=== PATIENT | male | born 1945 | race Caucasian/White ===

== ENCOUNTER 2016-04-01 22:37 | Inpatient (IN) | payer MEDICARE ==
[~2016-04-01] VITALS: Ht 177.8 cm; Wt 89.2 kg
[2016-04-01 23:13] LABS: BASO # 0.1 (0.0-0.2); BASO % 0.5 % (0.0-2.0); EOS # 0.2 (0.0-0.7); GRAN # 6.5 (1.4-6.5); GRAN % 65.5 % (42.2-75.2); HEMOGLOBIN 13.4 g/dl (13.5-18.0); LYMPH # 2.4 (1.2-3.4); MEAN CELL VOLUME 95 fl (80.0-100.0); MEAN CORPUSCULAR HEMOGLOBIN 30 pg (27.0-31.0); MEAN CORPUSCULAR HGB CONC 32 g/dl (33.0-37.0); MEAN PLATELET VOLUME 10.3 fl (7.4-10.4); MONO # 0.7 (0.1-0.6); MONO % 6.7 % (1.7-9.3); PLATELET COUNT 185 K/mm3 (130-400); RED BLOOD COUNT 4.42 M/mm3 (4.20-5.60); REDCELL DISTRIBUTION WIDTH-CV 12.6 % (11.5-14.5); WHITE BLOOD COUNT 9.9 K/mm3 (4.8-10.8)
[2016-04-01 23:14] LABS: ARTERIAL BLD GAS O2 SATURATION 99.4 % (92-100); ARTERIAL BLD GAS TCO2 CT 23.5; ARTERIAL BLOOD GAS BASE EXCESS -7.5 (-2-2); ARTERIAL BLOOD GAS HCO3 21.7 meq/L (22-26)
[2016-04-01 23:15] LABS: ALLEN TEST YES; ALLENS TEST RESULT PASS; ARTERIAL BLOOD GAS PHT 7.18 C (7.35-7.45); ARTERIAL BLOOD GAS PO2 338.7 mmHg (80-100); ARTERIAL BLOOD GAS PO2T 338.7 (80-100); ARTERIAL BLOOD GAS pH 7.18 (7.35-7.45); ATS? YES
[2016-04-01 23:18] LABS: INR 1.2 (0.8-3.0); PROTHROMBIN TIME 12.9 SECONDS (9.7-12.8)
[2016-04-01 23:25] LABS: ALBUMIN 3.2 gm/dL (3.5-5.0); BILIRUBIN,TOTAL 0.9 mg/dL (0.0-1.0); CALCIUM 7.4 mg/dL (8.4-10.2); CREATININE, serum 0.95 mg/dL (0.66-1.25); POTASSIUM 3.4 mmol/L (3.4-5.0); TOTAL PROTEIN 5.8 gm/dL (6.4-8.2)
[2016-04-01] MEDS ORDERED: LASIX 20MG TABL20 MG PO (23:29)
[2016-04-01] MEDS ORDERED: SPIRIVA RESPIMAT4 GM IH (23:30)
[2016-04-01] MEDS ORDERED: PULMICORT180 MCG/Ac IH (23:30)
[2016-04-01] MEDS ORDERED: TUDORZA IH (23:30)
[2016-04-01 23:40] LABS: TROPONIN-I 0.047 ng/mL (0.000-0.034)
[2016-04-01 23:57] LABS: ARTERIAL BLD GAS O2 SATURATION 79.8 % (92-100); ARTERIAL BLOOD GAS BASE EXCESS -3.6 (-2-2); ARTERIAL BLOOD GAS HCO3 26.2 meq/L (22-26); ARTERIAL BLOOD GAS PO2 52.6 mmHg (80-100)
[2016-04-01 23:58] LABS: ALLEN TEST YES; ALLENS TEST RESULT PASS; ARTERIAL BLD GAS TCO2 CT 28.3; ATS? YES
[2016-04-02] VITALS (1136 sets, daily range): BP systolic 58–194; BP diastolic 38–98; PULSE 92–115; TEMP 97.1–101.2; O2SAT 87–100
[2016-04-02] MEDS ORDERED: IMODIUM AD1 MG/5 ML PO (03:08)
[2016-04-02] MEDS ORDERED: COREG 3.123.125 MG/T PO (03:09)
[2016-04-02] MEDS ORDERED: ASPIRIN 81M81 MG/TA2 PO (03:10)
[2016-04-02] MEDS ORDERED: TUMS ULTRA1000 MG PO (03:12)
[2016-04-02 05:04] LABS: ARTERIAL BLD GAS O2 SATURATION 95.8 % (92-100); ARTERIAL BLD GAS TCO2 CT 28.9; ARTERIAL BLOOD GAS BASE EXCESS 1.8 (-2-2); ARTERIAL BLOOD GAS HCO3 27.4 meq/L (22-26); ARTERIAL BLOOD GAS PHT 7.39 C (7.35-7.45); ARTERIAL BLOOD GAS PO2 82.5 mmHg (80-100); ARTERIAL BLOOD GAS PO2T 82.5 (80-100); ARTERIAL BLOOD GAS pH 7.39 (7.35-7.45); OXYHEMOGLOBIN 94.4 %
[2016-04-02 05:05] LABS: ALLEN TEST NO; ATS? YES
[2016-04-02 05:06] LABS: ABG VENTILATOR TIDAL VOLUME 500 mL
[2016-04-03] VITALS (1205 sets, daily range): BP systolic 63–122; BP diastolic 41–78; PULSE 82–115; TEMP 97.2–101.4; O2SAT 69–100
[2016-04-03 01:31] LABS: VENOUS BLOOD GAS BE -4.4 (-4-4); VENOUS BLOOD GAS SAO2 73.4 % (60-80)
[2016-04-03 01:33] LABS: VENOUS BLOOD GAS SITE CENTRAL LINE
[2016-04-03 02:10] LABS: HEMATOCRIT 40.9 % (42.0-52.0); HEMOGLOBIN 13.6 g/dl (13.5-18.0); MEAN CORPUSCULAR HEMOGLOBIN 30 pg (27.0-31.0); MEAN CORPUSCULAR HGB CONC 33 g/dl (33.0-37.0); MEAN PLATELET VOLUME 10.3 fl (7.4-10.4); PLATELET COUNT 100 K/mm3 (130-400); RED BLOOD COUNT 4.53 M/mm3 (4.20-5.60); REDCELL DISTRIBUTION WIDTH-CV 13.2 % (11.5-14.5); WHITE BLOOD COUNT 7.7 K/mm3 (4.8-10.8)
[2016-04-03 02:11] LABS: MEAN CELL VOLUME 90 fl (80.0-100.0)
[2016-04-03 02:14] LABS: ADD PATHOLOGY DIFF REVIEW NO
[2016-04-03 02:28] LABS: BAND 19 % (0-10); NEUTROPHILS 72 % (42.0-75.2); TOTAL CELLS COUNTED 100
[2016-04-03 02:29] LABS: MICROCYTOSIS 1+; POLYCHROMASIA 1+
[2016-04-03 02:41] LABS: PH 5 (5-8); SQUAMOUS EPITHELIAL 0-2 /hpf; URINE APPEARANCE Cloudy; URINE BACTERIA Rare /hpf; URINE BILIRUBIN Negative (NEGATIVE); URINE BLOOD 3+ (NEGATIVE); URINE COLOR Amber; URINE GLUCOSE Negative (NEGATIVE); URINE KETONE Negative (NEGATIVE); URINE RBC >50 /hpf; URINE UROBILINOGEN Negative (NEGATIVE)
[2016-04-03 02:45] LABS: ADJUSTED CALCIUM 8.7 mg/dL (8.4-10.2); ALBUMIN 3.5 gm/dL (3.5-5.0); BILIRUBIN,TOTAL 1.2 mg/dL (0.0-1.0); CALCIUM 8.3 mg/dL (8.4-10.2); CREATININE, serum 2.07 mg/dL (0.66-1.25); MAGNESIUM 1.4 mg/dL (1.6-2.3); POTASSIUM 3.8 mmol/L (3.4-5.0); TOTAL PROTEIN 6.5 gm/dL (6.4-8.2)
[2016-04-03 03:02] LABS: TROPONIN-I 0.399 ng/mL (0.000-0.034)
[2016-04-03 05:32] LABS: ARTERIAL BLD GAS O2 SATURATION 94.1 % (92-100); ARTERIAL BLD GAS TCO2 CT 25.6; ARTERIAL BLOOD GAS BASE EXCESS 0.7 (-2-2); ARTERIAL BLOOD GAS HCO3 24.5 meq/L (22-26); ARTERIAL BLOOD GAS PHT 7.44 C (7.35-7.45); ARTERIAL BLOOD GAS PO2 71.1 mmHg (80-100); ARTERIAL BLOOD GAS PO2T 71.1 (80-100); ARTERIAL BLOOD GAS pH 7.44 (7.35-7.45); OXYHEMOGLOBIN 93.1 %
[2016-04-03 05:33] LABS: ALLEN TEST YES; ALLENS TEST RESULT PASS; ATS? YES
[2016-04-03 09:21] LABS: VENOUS BLOOD GAS BE -2.5 (-4-4); VENOUS BLOOD GAS SAO2 66.7 % (60-80)
[2016-04-03 09:22] LABS: VENOUS BLOOD GAS SITE VENIPUNCTURE
[2016-04-03 16:36] LABS: SODIUM,RANDOM URINE < 5 mmol/L
[2016-04-04] VITALS (1424 sets, daily range): BP systolic 91–122; BP diastolic 61–91; PULSE 103–111; TEMP 97–98.9; O2SAT 82–100
[2016-04-04 05:09] LABS: ALLEN TEST NO; ARTERIAL BLD GAS O2 SATURATION 91.6 % (92-100); ARTERIAL BLD GAS TCO2 CT 25.8; ARTERIAL BLOOD GAS BASE EXCESS -3.6 (-2-2); ARTERIAL BLOOD GAS HCO3 24.1 meq/L (22-26); ARTERIAL BLOOD GAS PHT 7.26 C (7.35-7.45); ARTERIAL BLOOD GAS PO2 66.5 mmHg (80-100); ARTERIAL BLOOD GAS PO2T 66.5 (80-100); ARTERIAL BLOOD GAS pH 7.26 (7.35-7.45); ATS? YES; OXYHEMOGLOBIN 90.4 %
[2016-04-04 06:03] LABS: CALCIUM 7.7 mg/dL (8.4-10.2); CREATININE, serum 1.67 mg/dL (0.66-1.25); MAGNESIUM 1.4 mg/dL (1.6-2.3); POTASSIUM 4.6 mmol/L (3.4-5.0)
[2016-04-04 10:49] LABS: pH GASTRIC CONTENTS 4
[2016-04-04 11:02] LABS: HEMATOCRIT 41.1 % (42.0-52.0); HEMOGLOBIN 13.3 g/dl (13.5-18.0); MEAN CELL VOLUME 94 fl (80.0-100.0); MEAN CORPUSCULAR HEMOGLOBIN 30 pg (27.0-31.0); MEAN CORPUSCULAR HGB CONC 32 g/dl (33.0-37.0); MEAN PLATELET VOLUME 11.6 fl (7.4-10.4); PLATELET COUNT 79 K/mm3 (130-400); RED BLOOD COUNT 4.38 M/mm3 (4.20-5.60); REDCELL DISTRIBUTION WIDTH-CV 13.2 % (11.5-14.5); WHITE BLOOD COUNT 5.5 K/mm3 (4.8-10.8)
[2016-04-04 11:37] LABS: ADD PATHOLOGY DIFF REVIEW NO
[2016-04-04 11:49] LABS: BAND 65 % (0-10); METAMYELOCYTE 16 % (0-0); NEUTROPHILS 3 % (42.0-75.2); TOTAL CELLS COUNTED 100
[2016-04-04 11:50] LABS: PLATELET ESTIMATE DECREASED (NORMAL)
[2016-04-05] VITALS (1078 sets, daily range): BP systolic 106–130; BP diastolic 51–81; PULSE 80–110; TEMP 97.7–98.7; O2SAT 86–99
[2016-04-05 04:50] LABS: ARTERIAL BLD GAS O2 SATURATION 88.3 % (92-100); ARTERIAL BLOOD GAS BASE EXCESS -7.4 (-2-2); ARTERIAL BLOOD GAS HCO3 21.3 meq/L (22-26); ARTERIAL BLOOD GAS PO2 60.9 mmHg (80-100); ARTERIAL BLOOD GAS PO2T 60.9 (80-100); OXYHEMOGLOBIN 87.2 %
[2016-04-05 04:51] LABS: ARTERIAL BLD GAS O2 SATURATION 88.3 % (92-100); ARTERIAL BLOOD GAS BASE EXCESS -7.4 (-2-2); ARTERIAL BLOOD GAS HCO3 21.3 meq/L (22-26); ARTERIAL BLOOD GAS PO2 60.9 mmHg (80-100)
[2016-04-05 04:52] LABS: ALLEN TEST YES; ALLENS TEST RESULT PASS; ATS? YES
[2016-04-05 05:31] LABS: HEMATOCRIT 38.6 % (42.0-52.0); HEMOGLOBIN 12.3 g/dl (13.5-18.0); MEAN CELL VOLUME 94 fl (80.0-100.0); MEAN CORPUSCULAR HEMOGLOBIN 30 pg (27.0-31.0); MEAN CORPUSCULAR HGB CONC 32 g/dl (33.0-37.0); MEAN PLATELET VOLUME 11.5 fl (7.4-10.4); PLATELET COUNT 79 K/mm3 (130-400); RED BLOOD COUNT 4.11 M/mm3 (4.20-5.60); REDCELL DISTRIBUTION WIDTH-CV 13.2 % (11.5-14.5); WHITE BLOOD COUNT 6.2 K/mm3 (4.8-10.8)
[2016-04-05 05:40] LABS: ADD PATHOLOGY DIFF REVIEW NO
[2016-04-05 05:51] LABS: ALBUMIN 2.8 gm/dL (3.5-5.0); BILIRUBIN,TOTAL 1.2 mg/dL (0.0-1.0); CREATININE, serum 2.27 mg/dL (0.66-1.25); MAGNESIUM 1.7 mg/dL (1.6-2.3); POTASSIUM 4.3 mmol/L (3.4-5.0); TOTAL PROTEIN 5.8 gm/dL (6.4-8.2)
[2016-04-05 06:01] LABS: BAND 53 % (0-10); NEUTROPHILS 36 % (42.0-75.2); TARGET CELLS 1+; TOTAL CELLS COUNTED 100
[2016-04-05 06:07] LABS: TROPONIN-I 0.149 ng/mL (0.000-0.034)
[2016-04-05 12:25] LABS: ARTERIAL BLD GAS O2 SATURATION 93.8 % (92-100); ARTERIAL BLD GAS TCO2 CT 23.4; ARTERIAL BLOOD GAS BASE EXCESS -6.3 (-2-2); ARTERIAL BLOOD GAS HCO3 21.7 meq/L (22-26); ARTERIAL BLOOD GAS PHT 7.21 C (7.35-7.45); ARTERIAL BLOOD GAS pH 7.21 (7.35-7.45)
[2016-04-05 12:26] LABS: ABG VENTILATOR TIDAL VOLUME 500 mL; ATS? NO
[2016-04-05 12:29] LABS: VENOUS BLOOD GAS BE -6.9 (-4-4); VENOUS BLOOD GAS SAO2 71.3 % (60-80)
[2016-04-05 12:31] LABS: VENOUS BLOOD GAS SITE CENTRAL LINE
[2016-04-05 14:13] LABS: INR 1.1 (0.8-3.0); PROTHROMBIN TIME 12.7 SECONDS (9.7-12.8)
[2016-04-05 15:57] LABS: VENOUS BLOOD GAS SAO2 73.4 % (60-80)
[2016-04-05 15:58] LABS: VENOUS BLOOD GAS SITE CENTRAL LINE
[2016-04-05 21:20] LABS: CALCIUM 8.1 mg/dL (8.4-10.2); CREATININE, serum 3.1 mg/dL (0.66-1.25); POTASSIUM 4.3 mmol/L (3.4-5.0)
[2016-04-05 21:21] LABS: ARTERIAL BLD GAS O2 SATURATION 93.8 % (92-100); ARTERIAL BLD GAS TCO2 CT 23.4; ARTERIAL BLOOD GAS HCO3 21.7 meq/L (22-26); ARTERIAL BLOOD GAS PHT 7.19 C (7.35-7.45); ARTERIAL BLOOD GAS PO2 76.3 mmHg (80-100); ARTERIAL BLOOD GAS PO2T 76.3 (80-100)
[2016-04-05 21:23] LABS: ALLEN TEST NO; ARTERIAL BLOOD GAS pH 7.19 (7.35-7.45); ATS? NO
[2016-04-05 21:24] LABS: ABG VENTILATOR TIDAL VOLUME 500 mL
[2016-04-06] VITALS (708 sets, daily range): BP systolic 105–129; BP diastolic 52–72; PULSE 78–80; TEMP 96.5–98.2; O2SAT 85–100
[2016-04-06 04:35] LABS: VENOUS BLOOD GAS BE -4.1 (-4-4); VENOUS BLOOD GAS SAO2 96.6 % (60-80)
[2016-04-06 04:39] LABS: ALLEN TEST NO; ARTERIAL BLD GAS O2 SATURATION 96.6 % (92-100); ARTERIAL BLD GAS TCO2 CT 25.5; ARTERIAL BLOOD GAS BASE EXCESS -4.1 (-2-2); ARTERIAL BLOOD GAS HCO3 23.8 meq/L (22-26); ARTERIAL BLOOD GAS PO2 97.6 mmHg (80-100); ARTERIAL BLOOD GAS pH 7.24 (7.35-7.45); ATS? NO
[2016-04-06 05:39] LABS: MEAN CELL VOLUME 93 fl (80.0-100.0); MEAN CORPUSCULAR HGB CONC 32 g/dl (33.0-37.0); MEAN PLATELET VOLUME 11.1 fl (7.4-10.4); RED BLOOD COUNT 3.72 M/mm3 (4.20-5.60); REDCELL DISTRIBUTION WIDTH-CV 13.5 % (11.5-14.5); WHITE BLOOD COUNT 5.3 K/mm3 (4.8-10.8)
[2016-04-06 05:42] LABS: INR 1.1 (0.8-3.0); PROTHROMBIN TIME 12.3 SECONDS (9.7-12.8)
[2016-04-06 05:45] LABS: HEMATOCRIT 34.6 % (42.0-52.0); MEAN CORPUSCULAR HEMOGLOBIN 30 pg (27.0-31.0); PLATELET COUNT 67 K/mm3 (130-400)
[2016-04-06 05:46] LABS: ADD PATHOLOGY DIFF REVIEW NO
[2016-04-06 05:52] LABS: PHOSPHOROUS 5.7 mg/dL (2.5-4.5)
[2016-04-06 05:55] LABS: ADJUSTED CALCIUM 9.1 mg/dL (8.4-10.2); ALBUMIN 2.6 gm/dL (3.5-5.0); BILIRUBIN,TOTAL 0.6 mg/dL (0.0-1.0); CREATININE, serum 3.45 mg/dL (0.66-1.25); POTASSIUM 3.9 mmol/L (3.4-5.0); TOTAL PROTEIN 5.5 gm/dL (6.4-8.2)
[2016-04-06 06:07] LABS: TROPONIN-I 0.099 ng/mL (0.000-0.034)
[2016-04-06 07:06] LABS: METAMYELOCYTE 2 % (0-0); PLATELET ESTIMATE DECREASED (NORMAL)
[2016-04-06 08:41] LABS: BAND 27 % (0-10); NEUTROPHILS 65 % (42.0-75.2); TOTAL CELLS COUNTED 100
[2016-04-06 13:55] LABS: C-REACTIVE PROTEIN 32.2 mg/dL (0.0-0.9)
[2016-04-06 15:45] LABS: ARTERIAL BLD GAS TCO2 CT 21.8; ARTERIAL BLOOD GAS BASE EXCESS -6.2 (-2-2); ARTERIAL BLOOD GAS HCO3 20.4 meq/L (22-26); ARTERIAL BLOOD GAS PHT 7.27 C (7.35-7.45); ARTERIAL BLOOD GAS PO2 99.5 mmHg (80-100); ARTERIAL BLOOD GAS PO2T 99.5 (80-100); ARTERIAL BLOOD GAS pH 7.27 (7.35-7.45); OXYHEMOGLOBIN 96.5 %
[2016-04-06 15:47] LABS: ATS? NO
[2016-04-06 21:10] LABS: ARTERIAL BLD GAS O2 SATURATION 92.6 % (92-100); ARTERIAL BLD GAS TCO2 CT 24.2; ARTERIAL BLOOD GAS BASE EXCESS -4.1 (-2-2); ARTERIAL BLOOD GAS HCO3 22.7 meq/L (22-26); ARTERIAL BLOOD GAS PHT 7.29 C (7.35-7.45); ARTERIAL BLOOD GAS PO2 67.4 mmHg (80-100); ARTERIAL BLOOD GAS PO2T 67.4 (80-100); ARTERIAL BLOOD GAS pH 7.29 (7.35-7.45); OXYHEMOGLOBIN 91.9 %
[2016-04-06 21:11] LABS: ATS? NO
[2016-04-06 21:13] LABS: PHOSPHOROUS 4.9 mg/dL (2.5-4.5); POTASSIUM 3.3 mmol/L (3.4-5.0)
[2016-04-06 21:15] LABS: CREATININE, serum 3.99 mg/dL (0.66-1.25)
[2016-04-07] VITALS (821 sets, daily range): BP systolic 109–133; BP diastolic 50–76; PULSE 80–83; TEMP 96.8–97.4; O2SAT 84–100
[2016-04-07 04:39] LABS: ARTERIAL BLD GAS O2 SATURATION 91.2 % (92-100); ARTERIAL BLD GAS TCO2 CT 22.4; ARTERIAL BLOOD GAS BASE EXCESS -5.5 (-2-2); ARTERIAL BLOOD GAS PHT 7.29 C (7.35-7.45); ARTERIAL BLOOD GAS PO2 67.6 mmHg (80-100); ARTERIAL BLOOD GAS PO2T 67.6 (80-100); ARTERIAL BLOOD GAS pH 7.29 (7.35-7.45); OXYHEMOGLOBIN 90.3 %
[2016-04-07 04:40] LABS: ATS? NO
[2016-04-07 05:57] LABS: MEAN CELL VOLUME 91 fl (80.0-100.0); MEAN CORPUSCULAR HGB CONC 33 g/dl (33.0-37.0); MEAN PLATELET VOLUME 11.2 fl (7.4-10.4); RED BLOOD COUNT 3.69 M/mm3 (4.20-5.60); REDCELL DISTRIBUTION WIDTH-CV 13.4 % (11.5-14.5); WHITE BLOOD COUNT 3.7 K/mm3 (4.8-10.8)
[2016-04-07 06:00] LABS: HEMATOCRIT 33.6 % (42.0-52.0); MEAN CORPUSCULAR HEMOGLOBIN 30 pg (27.0-31.0); PLATELET COUNT 61 K/mm3 (130-400)
[2016-04-07 06:01] LABS: ADD PATHOLOGY DIFF REVIEW NO
[2016-04-07 06:02] LABS: INR 1.1 (0.8-3.0); PROTHROMBIN TIME 12.4 SECONDS (9.7-12.8)
[2016-04-07 06:26] LABS: ADJUSTED CALCIUM 9.4 mg/dL (8.4-10.2); ALBUMIN 2.7 gm/dL (3.5-5.0); BILIRUBIN,TOTAL 0.5 mg/dL (0.0-1.0); CALCIUM 8.4 mg/dL (8.4-10.2); POTASSIUM 3.7 mmol/L (3.4-5.0); TOTAL PROTEIN 5.5 gm/dL (6.4-8.2)
[2016-04-07 06:30] LABS: BAND 25 % (0-10); METAMYELOCYTE 1 % (0-0); NEUTROPHILS 66 % (42.0-75.2); TOTAL CELLS COUNTED 100
[2016-04-07 06:41] LABS: PHOSPHOROUS 5.5 mg/dL (2.5-4.5)
[2016-04-07 08:05] LABS: TROPONIN-I 0.055 ng/mL (0.000-0.034)
[2016-04-07 08:07] LABS: CREATININE, serum 4.01 mg/dL (0.66-1.25)
[2016-04-07 09:01] LABS: ATS? YES
[2016-04-07 09:04] LABS: VENOUS BLOOD GAS SITE CENTRAL LINE
[2016-04-08] VITALS (1017 sets, daily range): BP systolic 102–164; BP diastolic 49–72; PULSE 80; TEMP 97.3–98.6; O2SAT 63–100
[2016-04-08 04:21] LABS: ARTERIAL BLD GAS O2 SATURATION 93.1 % (92-100); ARTERIAL BLD GAS TCO2 CT 24.3; ARTERIAL BLOOD GAS BASE EXCESS -3.3 (-2-2); ARTERIAL BLOOD GAS HCO3 22.9 meq/L (22-26); ARTERIAL BLOOD GAS PHT 7.32 C (7.35-7.45); ARTERIAL BLOOD GAS PO2 74.6 mmHg (80-100); ARTERIAL BLOOD GAS PO2T 74.6 (80-100); ARTERIAL BLOOD GAS pH 7.32 (7.35-7.45); OXYHEMOGLOBIN 92.3 %
[2016-04-08 04:22] LABS: ATS? NO
[2016-04-08 05:38] LABS: MEAN CELL VOLUME 91 fl (80.0-100.0); MEAN CORPUSCULAR HGB CONC 33 g/dl (33.0-37.0); MEAN PLATELET VOLUME 11.3 fl (7.4-10.4); RED BLOOD COUNT 3.39 M/mm3 (4.20-5.60); REDCELL DISTRIBUTION WIDTH-CV 13.4 % (11.5-14.5); WHITE BLOOD COUNT 3.8 K/mm3 (4.8-10.8)
[2016-04-08 05:57] LABS: HEMATOCRIT 30.9 % (42.0-52.0); HEMOGLOBIN 10.1 g/dl (13.5-18.0); MEAN CORPUSCULAR HEMOGLOBIN 30 pg (27.0-31.0); PLATELET COUNT 66 K/mm3 (130-400)
[2016-04-08 05:58] LABS: ADD PATHOLOGY DIFF REVIEW NO
[2016-04-08 06:06] LABS: PHOSPHOROUS 5.3 mg/dL (2.5-4.5)
[2016-04-08 06:25] LABS: TROPONIN-I 0.049 ng/mL (0.000-0.034)
[2016-04-08 06:35] LABS: CALCIUM 7.9 mg/dL (8.4-10.2)
[2016-04-08 06:42] LABS: CREATININE, serum 4.52 mg/dL (0.66-1.25)
[2016-04-08 07:07] LABS: BAND 38 % (0-10); EOSINOPHIL 1 % (0-4); NEUTROPHILS 52 % (42.0-75.2); TOTAL CELLS COUNTED 100
[2016-04-08 08:19] LABS: INR 1.1 (0.8-3.0); PROTHROMBIN TIME 12.3 SECONDS (9.7-12.8)
[2016-04-09] VITALS (1417 sets, daily range): BP systolic 95–165; BP diastolic 31–82; PULSE 79–109; TEMP 97.6–98.1; O2SAT 65–100
[2016-04-09 05:04] LABS: ARTERIAL BLD GAS O2 SATURATION 96.2 % (92-100); ARTERIAL BLD GAS TCO2 CT 24.2; ARTERIAL BLOOD GAS BASE EXCESS -2.6 (-2-2); ARTERIAL BLOOD GAS HCO3 22.9 meq/L (22-26); ARTERIAL BLOOD GAS PHT 7.35 C (7.35-7.45); ARTERIAL BLOOD GAS PO2 93.1 mmHg (80-100); ARTERIAL BLOOD GAS PO2T 93.1 (80-100); ARTERIAL BLOOD GAS pH 7.35 (7.35-7.45); OXYHEMOGLOBIN 95.5 %
[2016-04-09 05:05] LABS: ARTERIAL BLD GAS O2 SATURATION 96.2 % (92-100); ARTERIAL BLOOD GAS BASE EXCESS -2.6 (-2-2); ARTERIAL BLOOD GAS HCO3 22.9 meq/L (22-26); ARTERIAL BLOOD GAS PO2 93.1 mmHg (80-100); ARTERIAL BLOOD GAS pH 7.35 (7.35-7.45)
[2016-04-09 05:06] LABS: ALLEN TEST NO; ATS? NO
[2016-04-09 05:37] LABS: CALCIUM 7.7 mg/dL (8.4-10.2); PHOSPHOROUS 6.7 mg/dL (2.5-4.5)
[2016-04-09 05:43] LABS: INR 1.1 (0.8-3.0); PROTHROMBIN TIME 11.8 SECONDS (9.7-12.8)
[2016-04-09 06:01] LABS: BASO % 0.4 % (0.0-2.0); GRAN # 4.1 (1.4-6.5); GRAN % 82.4 % (42.2-75.2); LYMPH # 0.3 (1.2-3.4); LYMPH % 6.2 % (20.0-51.0); MEAN CELL VOLUME 89 fl (80.0-100.0); MEAN CORPUSCULAR HGB CONC 33 g/dl (33.0-37.0); MEAN PLATELET VOLUME 10.4 fl (7.4-10.4); MONO # 0.3 (0.1-0.6); MONO % 6.4 % (1.7-9.3); REDCELL DISTRIBUTION WIDTH-CV 13.6 % (11.5-14.5)
[2016-04-09 06:03] LABS: HEMATOCRIT 30.2 % (42.0-52.0); HEMOGLOBIN 10.1 g/dl (13.5-18.0); MEAN CORPUSCULAR HEMOGLOBIN 30 pg (27.0-31.0); PLATELET COUNT 67 K/mm3 (130-400)
[2016-04-09 06:03] LABS: CREATININE, serum 4.99 mg/dL (0.66-1.25); TROPONIN-I 0.084 ng/mL (0.000-0.034)
[2016-04-09 08:42] LABS: ATS? NO
[2016-04-09 11:30] LABS: CK total - for Isoenzymes 59 (())
[2016-04-10] VITALS (1414 sets, daily range): BP systolic 85–144; BP diastolic 53–84; PULSE 67–80; TEMP 97–98.2; O2SAT 52–99
[2016-04-11] VITALS (67 sets, daily range): BP systolic 103; BP diastolic 55; PULSE 80; TEMP 98.2; O2SAT 56–96
== END 2016-04-11 04:50 | disposition expired | DRG 163 ==
LOC: COL.ER 22:37 → ICU 04-02 00:47
PROVIDERS: Anesthesiology Critical Care Medicine; Emergency Medicine; Internal Medicine; Internal Medicine Pulmonary Disease
PROC: 0BH17EZ Insertion of Endotracheal Airway into Trachea, Via Natural or Artificial Opening (ICD-10-PCS; principal; 2016-04-02)
PROC: 5A1955Z Respiratory Ventilation, Greater than 96 Consecutive Hours (ICD-10-PCS; 2016-04-02)
PROC: 0B948ZZ Drainage of Right Upper Lobe Bronchus, Via Natural or Artificial Opening Endoscopic (ICD-10-PCS; 2016-04-07)
PROC: 0B958ZZ Drainage of Right Middle Lobe Bronchus, Via Natural or Artificial Opening Endoscopic (ICD-10-PCS; 2016-04-07)
PROC: 0B968ZZ Drainage of Right Lower Lobe Bronchus, Via Natural or Artificial Opening Endoscopic (ICD-10-PCS; 2016-04-07)
PROC: 0B988ZZ Drainage of Left Upper Lobe Bronchus, Via Natural or Artificial Opening Endoscopic (ICD-10-PCS; 2016-04-07)
PROC: 0B9B8ZZ Drainage of Left Lower Lobe Bronchus, Via Natural or Artificial Opening Endoscopic (ICD-10-PCS; 2016-04-07)
DX: J96.01 Acute respiratory failure with hypoxia (principal); I50.23 Acute on chronic systolic (congestive) heart failure; I13.0 Hypertensive heart and chronic kidney disease with heart failure and stage 1 through stage 4 chronic kidney disease, or unspecified chronic kidney disease; E87.4 Mixed disorder of acid-base balance; N17.9 Acute kidney failure, unspecified; Z51.5 Encounter for palliative care; Z66 Do not resuscitate; N18.9 Chronic kidney disease, unspecified; I71.4 Abdominal aortic aneurysm, without rupture; I25.10 Atherosclerotic heart disease of native coronary artery without angina pectoris; I25.5 Ischemic cardiomyopathy; Z95.810 Presence of automatic (implantable) cardiac defibrillator; J44.9 Chronic obstructive pulmonary disease, unspecified; F17.210 Nicotine dependence, cigarettes, uncomplicated; Z95.5 Presence of coronary angioplasty implant and graft; Z95.1 Presence of aortocoronary bypass graft; R57.8 Other shock
CPT/HCPCS: A4315; C1751; C9113; G0103; J0282; J1250; J1265; J1644; J1650; J1720; J1815; J1885; J1940; J1956; J2060; J2250; J2270; J2543; J2550; J2704; J2765; J3010; J3370; J3480; J7030; J7040; J7050; J7060; J7070; Q9967